=== PATIENT | female | born 1935 | race Caucasian/White ===

== ENCOUNTER 2017-12-01 13:02 | Observation (INO) ==
[2017-12-01] MEDS ORDERED: Aspirin 81 MG TAB.CHEW PO ONE (13:09)
--- NOTE | 2017-12-01 13:16 | Emergency Department Note ---
Disposition Clinical Impression: Chest pain Qualifiers: Chest pain type: unspecified Qualified Code(s): R07.9 - Chest pain, unspecified Disposition: Admitted As Inpatient Condition: Fair Referrals: Meredith Rivas MD [Primary Care Provider] - Forms: ED Satisfaction Letter Time of Disposition: 15:20 Chest Pain HPI - General Chief Complaint: ED Chest Pain Stated Complaint: Abnormal EKG Time Seen by Provider: 12/01/17 13:08 Source: patient Mode of arrival: ambulatory Limitations: no limitations Vital Signs Reviewed: Yes Nursing Notes Reviewed: Yes - History of Present Illness HPI Narrative: 82-year-old female who was sent in from the primary care provider's office due to chest pain. Patient states she has been having chest pain off and on for the last several days. She has no history of heart disease. He did have an EKG at her PCPs office with no acute change on that. Patient has had no recent cardiac workup. Pt complaint: chest pain Onset (ago): day(s) Duration: intermittent Onset: during rest Pain Location: substernal, left chest Severity: now resolved Severity scale (1-10): 0 Quality: tightness, aching Pain Radiation: none Improves with: nothing Worsens with: nothing Associated symptoms: Reports: other (Peripheral edema) Treatments prior to arrival chest pain: none - Related Data Home Medications Medication Instructions Recorded Confirmed Ascorbic Acid [Vitamin C] 1,000 mg PO DAILY 12/01/17 12/01/17 Aspirin [Lo-Dose Aspirin EC] 81 mg PO DAILY 12/01/17 12/01/17 Cholecalciferol (D-3) [Vitamin D] 2,000 unit PO DAILY 12/01/17 12/01/17 Dicyclomine [Bentyl] 20 mg PO QID 12/01/17 12/01/17 Fluticasone Propionate [Allergy 2 spr NS DAILY 12/01/17 12/01/17 Relief] Folic Acid 0.4 mg PO DAILY 12/01/17 12/01/17 Furosemide [Lasix] 40 mg PO DAILY 12/01/17 12/01/17 Lactobacillus [Culturelle] 1 each PO DAILY 12/01/17 12/01/17 Levothyroxine [Synthroid] 88 mcg PO DAILY 12/01/17 12/01/17 Omeprazole [PriLOSEC] 40 mg PO DAILY 12/01/17 12/01/17 Potassium Chloride [K-Tab ER] 20 meq PO DAILY 12/01/17 12/01/17 Ranitidine HCl [Acid Picking Crew Supervisor] 150 mg PO BID 12/01/17 12/01/17 Temazepam [Restoril] 30 mg PO HS 12/01/17 12/01/17 Vitamin E (Dl,Tocopheryl Acet) 400 unit PO DAILY 12/01/17 12/01/17 [Vitamin E] Allergies Allergy/AdvReac Type Severity Reaction Status Date / Time Penicillins Allergy Nausea Verified 04/04/15 18:45 Sulfa (Sulfonamide Allergy Itching Verified 04/04/15 18:45 Antibiotics) Constitutional: Denies: fever, chills, weakness, weight change Eyes: Denies: eye pain, eye discharge, vision change ENT ED: Denies: ear pain, throat pain, dental pain, hearing loss, epistaxis, congestion, dysphagia Cardiovascular: Reports: chest pain, edema. Denies: palpitations, dyspnea on exertion, syncope Respiratory: Denies: cough, dyspnea, wheezes, hemoptysis, stridor Gastrointestinal: Denies: abdominal pain, nausea, vomiting, diarrhea, constipation, hematemesis, melena, hematochezia Genitourinary: Denies: dysuria, frequency, hematuria, discharge Musculoskeletal: Denies: back pain, neck pain, arthralgia, myalgia Integumentary: Denies: rash, abrasion, lesions Neurological: Denies: headache, weakness, numbness, paresthesias, confusion, abnormal gait, vertigo Psychiatric: Denies: anxiety, depression, suicidal thoughts, homicidal thoughts , auditory hallucinations, visual hallucinations Endocrine: Denies: fatigue Hematological/Lymphatic: Denies: easy bleeding, easy bruising Allergic/Immunologic: Denies: facial swelling, urticaria Chest Pain PMH - Past Medical History Medical history: Reports: arthritis, cancer, CHF, GERD, hyperlipidemia, renal disease, other Surgical history: Reports: cancer surgery, cholecystectomy, hysterectomy, knee replacement, other Psychiatric history: Reports: no psych history MANAGER PROPERTY history: Reports: no MANAGER PROPERTY history - Social History Smoking Status: Unknown if ever smoked Alcohol use: Reports: none Drug use: Reports: none Physical Exam - General Limitations: no limitations General appearance: alert, in no apparent distress - Head Head exam: atraumatic, normocephalic, normal inspection - Eye Eye exam: Present: normal appearance, PERRL, EOMI - ENT ENT exam: normal exam, normal oropharynx, mucous membranes moist - Neck Neck exam: Present: normal inspection, full ROM, trachea midline - Chest Chest inspection: Present: normal inspection, symmetric chest wall rise - Respiratory Respiratory exam: Present: normal lung sounds bilaterally - Cardiovascular Cardiovascular exam: Present: regular rate, normal rhythm, normal heart sounds - Abdominal Exam Abdominal exam: Present: soft, Non-Tender. Absent: tenderness, distention, guarding, rebound, rigidity - Extremities Exam Extremities exam: Present: pedal edema - Expanded Lower Extremity Exam Neurovascular/Tendon exam: Absent: motor deficit, sensory deficit, tendon deficit Gait: observed and normal - Back Exam Back exam: Present: normal inspection, full ROM. Absent: tenderness - Neurological Exam Neurological exam: Present: alert, oriented X3 Course - Reevaluation(s) Reevaluation #1: 82-year-old with intermittent chest pain seen by family doctor or noted change on her EKG. Initial EKG here no acute changes, initial troponin is negative, chest x-ray no acute findings. Time: 16:08 - Consultations Consultation #1: Discussed with , admit. Time: 16:07 Vital Signs Temperature 98.0 F 12/01/17 13:03 Pulse Rate 77 12/01/17 13:03 Respiratory Rate 16 12/01/17 13:03 Blood Pressure 174/64 12/01/17 13:03 O2 Sat by Pulse Oximetry 98 12/01/17 13:03 Temperature 98.0 F 12/01/17 13:03 Pulse Rate 77 12/01/17 13:03 Respiratory Rate 16 12/01/17 13:03 Blood Pressure 174/64 12/01/17 13:03 O2 Sat by Pulse Oximetry 98 12/01/17 13:03 Oxygen Delivery Oxygen Delivery Room Air Chest Pain - Lab Data Lab results reviewed: Yes I reviewed the patient's lab results. Result diagrams: 12/01/17 13:19 12/01/17 13:19 Lab Results 12/01/17 12/01/17 12/01/17 Range/Units 13:09 13:16 13:19 WBC 5.7 (4.3-11.1) K/mcL RBC 4.25 (3.82-4.97) M/mcL Hgb 13.1 (11.5-15.4) g/dL Hct 39.5 (35.3-44.9) % MCV 92.9 (83.0-100.0) fL MCH 30.8 (28.0-33.3) pg MCHC 33.2 (31.6-35.5) g/dL RDW 14.2 (11.5-14.5) % Plt Count 256 (140-400) K/mcL MPV 9.4 (9.4-12.4) fL Immature Gran % 0.2 (0-4) % Seg Neutrophils % 66.6 % Lymphocytes % 25.7 % Monocytes % 5.8 % Eosinophils % 1.2 % Basophils % 0.5 % Neutrophils # 3.8 (1.6-8.9) K/mcL Lymphocytes # 1.5 (0.6-4.6) K/mcL Monocytes # 0.3 (0.0-1.3) K/mcL Eosinophils # 0.1 (0.0-0.6) K/mcL Basophils # 0.0 (0.0-0.2) K/mcL PT 9.3 L (9.4-12.1) Seconds INR 0.9 APTT 29.7 (26.0-36.0) Seconds Sodium (136-145) mEq/L Potassium (3.5-5.1) mEq/L Chloride (98-107) mEq/L Carbon Dioxide (23-29) mEq/L BUN (8-23) mg/dL Creatinine (0.60-1.20) mg/dL Est GFR ( Amer) (> 60) Est GFR (Non-Af Amer) (> 60) BUN/Creatinine Ratio (6-26) Glucose (70-105) mg/dL Calculated Osmolality (280-300) Calcium (8.6-10.3) mg/dL Troponin I (< 0.04) ng/mL B-Natriuretic Peptide 138 H (Less than 100) pg/mL 12/01/17 Range/Units 13:19 WBC (4.3-11.1) K/mcL RBC (3.82-4.97) M/mcL Hgb (11.5-15.4) g/dL Hct (35.3-44.9) % MCV (83.0-100.0) fL MCH (28.0-33.3) pg MCHC (31.6-35.5) g/dL RDW (11.5-14.5) % Plt Count (140-400) K/mcL MPV (9.4-12.4) fL Immature Gran % (0-4) % Seg Neutrophils % % Lymphocytes % % Monocytes % % Eosinophils % % Basophils % % Neutrophils # (1.6-8.9) K/mcL Lymphocytes # (0.6-4.6) K/mcL Monocytes # (0.0-1.3) K/mcL Eosinophils # (0.0-0.6) K/mcL Basophils # (0.0-0.2) K/mcL PT (9.4-12.1) Seconds INR APTT (26.0-36.0) Seconds Sodium 137 (136-145) mEq/L Potassium 4.2 (3.5-5.1) mEq/L Chloride 104 (98-107) mEq/L Carbon Dioxide 26 (23-29) mEq/L BUN 17 (8-23) mg/dL Creatinine 1.15 (0.60-1.20) mg/dL Est GFR ( Amer) 54 L (> 60) Est GFR (Non-Af Amer) 45 L (> 60) BUN/Creatinine Ratio 15 (6-26) Glucose 101 (70-105) mg/dL Calculated Osmolality 286 (280-300) Calcium 10.5 H (8.6-10.3) mg/dL Troponin I < 0.03 (< 0.04) ng/mL B-Natriuretic Peptide (Less than 100) pg/mL - Radiology Data Radiology results reviewed: Yes I reviewed the patient's radiology results. Chest X-Ray 12/01/17 13:09 IMPRESSION: No acute cardiopulmonary disease D/ / Daniel Dudley MD / Daniel Dudley MD Interpreting Provider: Daniel Dudley MD - EKG Data EKG attestation: Yes I reviewed and interpreted this EKG. EKG shows normal: sinus rhythm Rate: normal Rhythm: NSR [place]/QRS: left axis deviation Heart block present: 1st Degree Interpretation: no acute changes Heart Score - Score History: Moderately Suspicious EKG: Normal Age: Greater than 65 Risk Factors: 1-2 risk factors Troponin: Less than normal limit HEART Score Total: 4
[2017-12-01 14:17] LABS: Basophils % 0.5 %; Eosinophils # 0.1 K/mcL (0.0-0.6); Eosinophils % 1.2 %; Hematocrit 39.5 % (35.3-44.9); Hemoglobin 13.1 g/dL (11.5-15.4); Immature Granulocytes % 0.2 % (0-4); Lymphocytes # 1.5 K/mcL (0.6-4.6); Lymphocytes % 25.7 %; Mean Corpuscular HGB Conc 33.2 g/dL (31.6-35.5); Mean Corpuscular Hemoglobin 30.8 pg (28.0-33.3); Mean Corpuscular Volume 92.9 fL (83.0-100.0); Mean Platelet Volume 9.4 fL (9.4-12.4); Monocytes # 0.3 K/mcL (0.0-1.3); Monocytes % 5.8 %; Neutrophils # 3.8 K/mcL (1.6-8.9); Platelet Count 256 K/mcL (140-400); Red Blood Count 4.25 M/mcL (3.82-4.97); Red Cell Distribution Width 14.2 % (11.5-14.5); Segmented Neutrophils % 66.6 %
[2017-12-01 14:25] LABS: INR 0.9; Prothrombin Time 9.3 Seconds (9.4-12.1)
[2017-12-01 14:29] LABS: Activated Partial Thrombo Time 29.7 Seconds (26.0-36.0)
[2017-12-01 14:42] LABS: BUN/Creatinine Ratio 15 (6-26); Blood Urea Nitrogen 17 mg/dL (8-23); Calcium 10.5 mg/dL (8.6-10.3); Carbon Dioxide 26 mEq/L (23-29); Chloride 104 mEq/L (98-107); Glucose 101 mg/dL (70-105); Osmolality,Calculated 286 (280-300); Potassium 4.2 mEq/L (3.5-5.1); Sodium 137 mEq/L (136-145); Troponin I < 0.03 ng/mL (< 0.04); eGFR For African Americans 54 (> 60); eGFR For Non-African Americans 45 (> 60)
[2017-12-01] MEDS ORDERED: *HR* HYDROcodone/Acet 5/325 mg TABLET PO PRN (17:12)
[2017-12-01] MEDS ORDERED: Naloxone 0.4 MG/ML INJ IVP PRN (17:12)
[2017-12-01] MEDS ORDERED: *HR* Promethazine 25 MG/ML VIAL IVP PRN (17:12)
[2017-12-01] MEDS ORDERED: Ondansetron 4 MG/2 ML VIAL IVP PRN (17:12)
--- NOTE | 2017-12-01 18:21 | Electrocardiograph Report ---
[facility] Test Date: 2017-12-01 Pat Name: Nat Coppola Department: 103 Room: 3B48 Gender: F Burr Filer: JARAD : 1935 Requested By: Janusz Prado Order Number: [id number] Reading MD: Jose Lambert Measurements Intervals [place] Rate: 69 P: 27 AR: 226 QRS: -39 QRSD: 102 T: 26 QT: 367 QTc: 386 Interpretive Statements SINUS RHYTHM WITH FIRST DEGREE AV BLOCK MARKED LEFT AXIS DEVIATION [QRS AXIS < -30] VOLTAGE CRITERIA FOR LVH [MEETS CRITERIA IN ONE OF: R(aVL), S(V1), R(V5), R(V5/V6) +S(V1)] Electronically Signed On 12-01-2017 18:20:11 EDT by Jose Lambert
--- NOTE | 2017-12-01 18:49 | Internal Med History&Physical ---
Date of Encounter: 12/01/17 Time of Encounter: 17:45 Internal Medicine - H&P: HPI Chief complaint: Chest pain Admitted From: Emergency Dept Plans for Post Hospital Care: Home History of present illness: Ms. Coppola is a 82 year old female with a known past medical history of hypertension, congestive heart failure, GERD, and hypothyroidism who was sent to the emergency room from the primary care doctor's office due to chest pain. Patient stated that she went to see her PCP as a routine appointment, when she was there she happened to have chest pain located at left chest wall region and non-radiating. She did mention from last few days patient has been having intermittent chest pain lasts for 30 to 40 minutes. Every time when she gets chest pain she is feeling some fluttering / palpitations in her chest. She denied of an active chest pain now. Past Med Surg Social Fam HX - Past Medical History Medical history: arthritis, cancer, CHF, GERD, hyperlipidemia, renal disease, other Additional medical history: KIDNEY PROBLEMS/. Psychiatric history: no psych history - Past Surgical History Surgical History: cancer surgery, cholecystectomy, hysterectomy, knee replacement, other Additional surgical history: MVP congenital - Social History Smoking Status: Unknown if ever smoked Smokeless Tobacco Status: No Alcohol use: none Drug use: none - Family History Mother Living Status: Father Living Status: Internal Medicine - H&P: Meds Ascorbic Acid [Vitamin C] 1,000 mg PO DAILY 12/01/17 [History] Aspirin [Lo-Dose Aspirin EC] 81 mg PO DAILY 12/01/17 [History] Cholecalciferol (D-3) [Vitamin D] 2,000 unit PO DAILY 12/01/17 [History] Dicyclomine [Bentyl] 20 mg PO QID 12/01/17 [History] Fluticasone Propionate [Allergy Relief] 2 spr NS DAILY 12/01/17 [History] Folic Acid 0.4 mg PO DAILY 12/01/17 [History] Furosemide [Lasix] 40 mg PO DAILY 12/01/17 [History] Lactobacillus [Culturelle] 1 each PO DAILY 12/01/17 [History] Levothyroxine [Synthroid] 88 mcg PO DAILY 12/01/17 [History] Omeprazole [PriLOSEC] 40 mg PO DAILY 12/01/17 [History] Potassium Chloride [K-Tab ER] 20 meq PO DAILY 12/01/17 [History] Ranitidine HCl [Acid Warhead Maintenance Specialist] 150 mg PO BID 12/01/17 [History] Temazepam [Restoril] 30 mg PO HS 12/01/17 [History] Vitamin E (Dl,Tocopheryl Acet) [Vitamin E] 400 unit PO DAILY 12/01/17 [History] 3 Allergy/AdvReac Type Severity Reaction Status Date / Time Penicillins Allergy Nausea Verified 04/04/15 18:45 Sulfa (Sulfonamide Allergy Itching Verified 04/04/15 18:45 Antibiotics) All Systems PM: A 10-system review of systems was performed and is negative for pertinent findings except as documented above in the HPI. Review of systems: All the systems are reviewed everything is benign except the systems and symptoms I mentioned in the history of present illness - Constitutional Vitals: Temp Pulse Resp BP Pulse Ox 98.9 F 96 16 156/108 96 12/01/17 18:39 12/01/17 18:39 12/01/17 18:39 12/01/17 18:39 12/01/17 18:39 General appearance: Present: A&O X 3, no acute distress, answers questions appropriately - Head Head exam: Present: atraumatic, normal inspection - Neck Neck exam general surgery: Present: supple - Respiratory Respiratory exam: Present: decreased breath sounds. Absent: rales, respiratory distress - Cardiovascular Cardiovascular exam: Present: RRR, +S1, +S2. Absent: tachycardia - GI/Abdominal GI/Abdominal exam: Present: normal bowel sounds, soft. Absent: rebound, rigid, tenderness - Extremities Exam Extremities exam: Absent: calf tenderness, pedal edema, tenderness - Back Exam Back exam: Absent: CVA tenderness (L), CVA tenderness (R) - Neurological Exam Neurological exam: Present: alert, oriented X3 - Psychiatric Psychiatric exam: Present: normal affect, normal mood - Skin Skin exam: Absent: rash Internal Med - H&P Results - Labs CBC & Chem 7: 12/01/17 13:19 12/01/17 13:19 - Assessment and plan (1) Chest pain Current Visit: Yes Status: Acute Assessment and plan: Will admit the pt into Tele for observation Will place pt on monitoring and evaluation advisor check serial troponin so far negative troponin EKG reviewed no acute ischemic changes noticed will start pt on ASA and Nitro PRN for pain Will check FLP in AM Will get stress test in AM since pt is high risk for ACS Qualifiers: Chest pain type: unspecified Qualified Code(s): R07.9 - Chest pain, unspecified (2) HTN (hypertension) Current Visit: Yes Status: Acute Assessment and plan: Resumed home medications Qualifiers: Hypertension type: essential hypertension Qualified Code(s): I10 - Essential (primary) hypertension (3) CKD (chronic kidney disease) stage 2, GFR 60-89 ml/min Current Visit: Yes Status: Acute Assessment and plan: Stable creatinine avoid nephrotoxic medication (4) Hyperlipidemia Current Visit: No Status: Acute Assessment and plan: On statins Qualifiers: Hyperlipidemia type: unspecified Qualified Code(s): E78.5 - Hyperlipidemia , unspecified - Time Spent With Patient Total time spent is greater than 50% in coordination of care (as documented) at patient's floor/unit and/or counseling patient:
[2017-12-01] MEDS ORDERED: Temazepam 15 MG CAPSULE PO SCH (21:00)
[2017-12-01] MEDS: Acetaminophen 325 MG TABLET PO PRN (22:39)
[2017-12-02 01:22] LABS: Basophils % 0.6 %; Eosinophils # 0.1 K/mcL (0.0-0.6); Eosinophils % 2.5 %; Hematocrit 30.7 % (35.3-44.9); Lymphocytes # 1.7 K/mcL (0.6-4.6); Lymphocytes % 35.2 %; Mean Corpuscular HGB Conc 33.9 g/dL (31.6-35.5); Mean Corpuscular Hemoglobin 31.3 pg (28.0-33.3); Mean Corpuscular Volume 92.5 fL (83.0-100.0); Mean Platelet Volume 9.6 fL (9.4-12.4); Monocytes # 0.4 K/mcL (0.0-1.3); Monocytes % 8.6 %; Neutrophils # 2.5 K/mcL (1.6-8.9); Nucleated Red Blood Cells 0.4 /100 WBC (0); Platelet Count 209 K/mcL (140-400); Red Blood Count 3.32 M/mcL (3.82-4.97); Red Cell Distribution Width 14.2 % (11.5-14.5); Segmented Neutrophils % 53.1 %
[2017-12-02 01:23] LABS: Hemoglobin 10.4 g/dL (11.5-15.4)
[2017-12-02 01:40] LABS: BUN/Creatinine Ratio 17 (6-26); Blood Urea Nitrogen 18 mg/dL (8-23); Calcium 9.6 mg/dL (8.6-10.3); Carbon Dioxide 26 mEq/L (23-29); Chloride 105 mEq/L (98-107); Chol/HDL Ratio 3.9 (0-4.9); Cholesterol 190 mg/dL (< 200); Glucose 111 mg/dL (70-105); HDL Cholesterol 49 mg/dL (40-59); LDL Cholesterol,Calculated 124 mg/dL (0-99); Osmolality,Calculated 283 (280-300); Potassium 3.9 mEq/L (3.5-5.1); Sodium 135 mEq/L (136-145); Triglycerides 86 mg/dL (< 150); eGFR For African Americans > 60 (> 60); eGFR For Non-African Americans 51 (> 60)
[2017-12-02] MEDS ORDERED: Regadenoson 0.4 MG/5 ML SYRINGE IVP ONE (06:41)
[2017-12-02] MEDS ORDERED: Aspirin Enteric Coated 81 MG Tablet PO SCH (09:00)
[2017-12-02] MEDS ORDERED: Fluticasone Propionate Nasal 50 MCG/SPRAY BOTTLE NS SCH (09:00)
[2017-12-02] MEDS ORDERED: Famotidine 20 MG TABLET PO SCH (09:00)
[2017-12-02] MEDS ORDERED: Ascorbic Acid 500 MG TABLET PO SCH (09:00)
[2017-12-02] MEDS ORDERED: Folic Acid 1 MG TABLET PO SCH (09:00)
[2017-12-02] MEDS ORDERED: Cholecalciferol (D-3) 1,000 UNIT TABLET PO SCH (09:00)
[2017-12-02] MEDS ORDERED: Lactobacillus 1 EACH CAP.SPRINK PO SCH (09:00)
[2017-12-02] MEDS: Acetaminophen 325 MG TABLET PO PRN (10:41)
--- NOTE | 2017-12-02 13:48 | Discharge Summary ---
- NOTES TO OUTPATIENT PROVIDER Notes to Outpatient Provider: Follow-up with echocardiogram which is pending at time of discharge. Patient also likely benefit from Holter monitor as she reported fluttering of her heart Orders not resulted at time of discharge: Pending orders 12/01/17 18:45 NM chinmay perf SPECT multi [NM] Routine 12/02/17 12:53 EV echocardiogram Routine Date of Encounter: 12/02/17 Time of Encounter: 13:45 - Discharge Diagnosis (1) Chest pain Priority: Primary Status: Acute Assessment and Plan: presented with chest pain and heart fluttering. Serial troponins negative. EKG with known first degree AV block. Stress test negative for acute ischemia or infarct. Chest pain resolved at time of discharge. Echocardiogram pending ( patient did not want to wait for results). Continue home ASA. Advised to return to ER if chest pain recurs. Qualifiers: Chest pain type: unspecified Qualified Code(s): R07.9 - Chest pain, unspecified (2) Hyperlipidemia Priority: Secondary Status: Acute Assessment and Plan: per hx. Cont home statin Qualifiers: Hyperlipidemia type: unspecified Qualified Code(s): E78.5 - Hyperlipidemia , unspecified (3) HTN (hypertension) Priority: Primary Status: Acute Assessment and Plan: per hx. BP controlled. Cont home BP medications Qualifiers: Hypertension type: essential hypertension Qualified Code(s): I10 - Essential (primary) hypertension (4) CKD (chronic kidney disease) stage 2, GFR 60-89 ml/min Priority: Primary Status: Acute Assessment and Plan: Function at baseline. Avoid nephrotoxic agents as possible. Follow-up with PCP. (5) Murmur Priority: Primary Status: Acute Assessment and Plan: heard on exam. Patient reported history of mitral valve prolapse. 10/2016 outpatient cardiology note reviewed and noted 03/2014 TTE with EF 60%, mild diastolic dysfunction, no mention of heart valves. TTE pending at time of discharge (patient did not want to wait for results). Need to follow-up with primary furniture restorer outpatient and/or PCP (6) Vasovagal syncope Priority: Primary Status: Acute Assessment and Plan: per hx. Chart review shows 2013 TTT 2013 positive for vasovagal syncope. Advised on adequate hydration and compression stockings. (7) Palpitations Priority: Primary Status: Acute Assessment and Plan: reported sensation of ""heart fluttering". EKG with known first degree AV block. No arrhythmia noted on telemetry. No tachycardia. 2013 Holter monitor showed frequent PACs and PVCs. Would like to add low-dose BB however heart rate intermittently in the 60s and with history of vasovagal syncope 1 to avoid further bradycardia. She would likely benefit from repeat Holter monitor. Hospital course: please assessment and plan for Hospital course Discharge discussed with: patient (Seen and examined at bedside. Patient is new to me, information obtained from chart review and patient report. Patient says she feels fine, back to baseline. No chest pain or shortness of breath says she intermittently feels a fluttering sensation in her heart. A murmur is noted on exam the patient tells me that she has mitral valve prolapse. She would like to discharge home today. She is agreeable to stay for echocardiogram does not want to wait for results. Advised to return to ER if chest pain, SOB or severe palpitations recur. Otherwise follow-up with outpatient primary furniture restorer and PCP. Patient verbalizes understanding.) - Time Spent with Patient Total time spent providing and/or coordinating discharge services: - Discharge Medications Home Medications: Ascorbic Acid [Vitamin C] 1,000 mg PO DAILY 12/01/17 [History] Aspirin [Lo-Dose Aspirin EC] 81 mg PO DAILY 12/01/17 [History] Cholecalciferol (D-3) [Vitamin D] 2,000 unit PO DAILY 12/01/17 [History] Dicyclomine [Bentyl] 20 mg PO QID 12/01/17 [History] Fluticasone Propionate [Allergy Relief] 2 spr NS DAILY 12/01/17 [History] Folic Acid 0.4 mg PO DAILY 12/01/17 [History] Furosemide [Lasix] 40 mg PO DAILY 12/01/17 [History] Lactobacillus [Culturelle] 1 each PO DAILY 12/01/17 [History] Levothyroxine [Synthroid] 88 mcg PO DAILY 12/01/17 [History] Omeprazole [PriLOSEC] 40 mg PO DAILY 12/01/17 [History] Potassium Chloride [K-Tab ER] 20 meq PO DAILY 12/01/17 [History] Ranitidine HCl [Acid Mash Processing Operator] 150 mg PO BID 12/01/17 [History] Temazepam [Restoril] 30 mg PO HS 12/01/17 [History] Vitamin E (Dl,Tocopheryl Acet) [Vitamin E] 400 unit PO DAILY 12/01/17 [History] Allergies/Adverse Reactions: 3 Allergy/AdvReac Type Severity Reaction Status Date / Time Penicillins Allergy Nausea Verified 04/04/15 18:45 Sulfa (Sulfonamide Allergy Itching Verified 04/04/15 18:45 Antibiotics) Date of admission: 12/01/17 16:33 Primary care physician: Meredith [facility] Discharging clinician: Lady Merida Anticipated date of discharge: 12/02/17 - Constitutional Vitals: Temp Pulse Resp BP Pulse Ox 97.7 F 67 16 181/85 97 12/02/17 13:00 12/02/17 13:00 12/02/17 13:00 12/02/17 13:00 12/02/17 13:00 General appearance: Present: A&O X 3, no acute distress, answers questions appropriately - Head Head exam: Present: atraumatic, normocephalic - Eye Eye exam: Present: PERRL, conjuntiva pink, sclera anicteric Pupils: Present: PERRL - Neck Neck exam general surgery: Present: supple, trachea midline. Absent: lymphadenopathy - Respiratory Respiratory exam: Present: CTAB. Absent: accessory muscle use, rales, rhonchi, wheezes - Cardiovascular Cardiovascular exam: Present: RRR, +S1, +S2, systolic murmur. Absent: diastolic murmur, gallop, rubs - GI/Abdominal GI/Abdominal exam: Present: normal bowel sounds, soft, no peritoneal signs. Absent: distended, tenderness - Extremities Exam Extremities exam: Present: warm, radial pulses palpable and symmetrical. Absent : calf tenderness, cyanotic, pedal edema - Neurological Exam Neurological exam: Present: CN II-XII intact, oriented X3, no focal deficits. Absent: pronater drift, facial droop, speech deficit - Skin Skin exam: Present: dry, intact - Patient Status Disposition: Home, Self-Care Condition: Good Functional capacity at discharge: independent ambulation Overall status at discharge: patient is back to baseline - Discharge Instructions Instructions: Chest Pain (DC), Heart Murmur (GEN), Holter Monitoring (DC), Syncope (DC), Palpitations (DC) Follow Up With: Meredith Rivas MD [Primary Care Provider] - (Unable to schedule follow- up appointment for you as it is the weekend. Please call on Monday to schedule a follow-up appointment as soon as possible. You would likely benefit from a repeat Holter monitor. Please ask your primary care doctor to follow up with echocardiogram results ) - Diet and Activity Activity: increase activity as tolerated Diet: advance to your usual diet
--- NOTE | 2017-12-02 15:59 | Event Note ---
Date of Encounter: 12/02/17 Time of Encounter: 15:58 RN spoke with echocardiogram department who reported that patient would not have echocardiogram until tomorrow 12/03/2017. Patient was updated and she did not want to stay to have echocardiogram done. Stated she would follow up outpatient with her PCP.
[2017-12-02 17:14] VITALS: BP 190/74
== END 2017-12-02 18:23 | disposition home or self-care (01) ==
LOC: 3BNU 13:02 → EMEROO 13:02 → 3BNU 18:16
PROVIDERS: ADMIT Family Medicine; ATTEND Family Medicine

== ENCOUNTER 2019-10-10 14:09 | Inpatient (IN) ==
[2019-10-10] MEDS ORDERED: *HR* FentaNYL (PF) 100 MCG/2 ML VIAL IVP ONE (15:34)
[2019-10-10 16:38] LABS: Basophils % 0.5 %; Eosinophils # 0.1 K/mcL (0.0-0.6); Eosinophils % 0.8 %; Hematocrit 40.1 % (35.3-44.9); Hemoglobin 12.7 g/dL (11.5-15.4); Immature Granulocytes % 0.4 % (0-4); Lymphocytes # 1.1 K/mcL (0.6-4.6); Lymphocytes % 13.4 %; Mean Corpuscular HGB Conc 31.7 g/dL (31.6-35.5); Mean Corpuscular Hemoglobin 29.9 pg (28.0-33.3); Mean Corpuscular Volume 94.4 fL (83.0-100.0); Monocytes # 0.4 K/mcL (0.0-1.3); Monocytes % 4.7 %; Neutrophils # 6.3 K/mcL (1.6-8.9); Platelet Count 191 K/mcL (140-400); Red Blood Count 4.25 M/mcL (3.82-4.97); Red Cell Distribution Width 14.5 % (11.5-14.5); Segmented Neutrophils % 80.2 %; White Blood Count 7.9 K/mcL (4.3-11.1)
[2019-10-10 16:56] LABS: Calcium 10.4 mg/dL (8.6-10.3)
[2019-10-10] MEDS ORDERED: Ondansetron 4 MG/2 ML VIAL IVP PRN (17:23)
[2019-10-10] MEDS ORDERED: Naloxone 0.4 MG/ML INJ IVP PRN (17:23)
[2019-10-10] MEDS ORDERED: Loratadine/Pseudophed (12 HR) 1 EACH TABLET PO PRN (17:28)
[2019-10-10] MEDS: *HR* OxyCODONE Immed Rel 5 MG TABLET PO PRN (18:33)
[2019-10-10] MEDS: *HR* HYDROcodone/Acet 5/325 mg TABLET PO PRN (21:33)
[2019-10-10] MEDS: *HR* Heparin 5,000 UNIT/ML VIAL SQ SCH (21:34)
[2019-10-10] MEDS ORDERED: Melatonin 3 MG TABLET PO ONE (22:50)
[2019-10-10] MEDS: Acetaminophen 325 MG TABLET PO PRN (23:16)
[2019-10-11] MEDS: *HR* OxyCODONE Immed Rel 5 MG TABLET PO PRN ×4 (02:34→21:18)
[2019-10-11] MEDS: *HR* HYDROcodone/Acet 5/325 mg TABLET PO PRN ×2 (06:02→12:05)
[2019-10-11] MEDS: *HR* Heparin 5,000 UNIT/ML VIAL SQ SCH ×3 (06:02→21:11)
[2019-10-11] MEDS: Aspirin Enteric Coated 81 MG Tablet PO SCH (08:28)
[2019-10-11] MEDS ORDERED: Loratadine 10 MG TABLET PO PRN (12:10)
[2019-10-11] MEDS ORDERED: Nitroglycerin 0.4 MG TAB.SUBL SL PRN (12:10)
[2019-10-11] MEDS ORDERED: Sennosides/Docusate Sodium TABLET PO PRN (12:41)
[2019-10-11] MEDS: Temazepam 15 MG CAPSULE PO SCH (21:13)
[2019-10-12] MEDS ORDERED: Melatonin 3 MG TABLET PO ONE (01:06)
[2019-10-12] MEDS: *HR* Heparin 5,000 UNIT/ML VIAL SQ SCH ×3 (05:10→20:59)
[2019-10-12 07:19] LABS: Basophils % 0.4 %; Eosinophils # 0.3 K/mcL (0.0-0.6); Eosinophils % 5.1 %; Hematocrit 34.5 % (35.3-44.9); Hemoglobin 10.8 g/dL (11.5-15.4); Immature Granulocytes % 0.2 % (0-4); Lymphocytes # 1.5 K/mcL (0.6-4.6); Lymphocytes % 27.5 %; Mean Corpuscular HGB Conc 31.3 g/dL (31.6-35.5); Mean Corpuscular Hemoglobin 29.6 pg (28.0-33.3); Mean Corpuscular Volume 94.5 fL (83.0-100.0); Mean Platelet Volume 10.2 fL (9.4-12.4); Monocytes # 0.5 K/mcL (0.0-1.3); Monocytes % 9.4 %; Platelet Count 192 K/mcL (140-400); Red Blood Count 3.65 M/mcL (3.82-4.97); Red Cell Distribution Width 14.5 % (11.5-14.5); Segmented Neutrophils % 57.4 %; White Blood Count 5.3 K/mcL (4.3-11.1)
[2019-10-12 07:46] LABS: BUN/Creatinine Ratio 20 (6-26); Blood Urea Nitrogen 19 mg/dL (8-23); Calcium 9.9 mg/dL (8.6-10.3); Carbon Dioxide 26 mEq/L (23-29); Chloride 102 mEq/L (98-107); Glucose 102 mg/dL (70-105); Magnesium 2.1 mg/dL (1.6-2.6); Osmolality,Calculated 282 (280-300); Potassium 3.8 mEq/L (3.5-5.1); Sodium 135 mEq/L (136-145); eGFR For African Americans > 60 (> 60); eGFR For Non-African Americans 56 (> 60)
[2019-10-12 07:54] LABS: Thyroid Stimulating Hormone 2.473 mcIU/mL (0.340-5.600)
[2019-10-12] MEDS: Furosemide 40 MG TABLET PO SCH (09:06)
[2019-10-12] MEDS: Multivit/Ca/Min/Fe/FA 1 TAB TABLET PO SCH (09:06)
[2019-10-12] MEDS: Aspirin Enteric Coated 81 MG Tablet PO SCH (09:06)
[2019-10-12] MEDS: Lactobacillus 1 EACH CAP.SPRINK PO SCH (09:06)
[2019-10-12] MEDS: Metoprolol XL (24 HR) Succ 25 MG TAB.ER.24H PO SCH (09:06)
[2019-10-12] MEDS: *HR* OxyCODONE Immed Rel 5 MG TABLET PO PRN ×3 (09:07→17:33)
[2019-10-12] MEDS: polyethylene glycoL 3350 17 GM POWD.PACK PO SCH (09:23)
[2019-10-12] MEDS: Acetaminophen 325 MG TABLET PO PRN (10:45)
[2019-10-12] MEDS: Temazepam 15 MG CAPSULE PO SCH (20:58)
[2019-10-13] MEDS: *HR* Heparin 5,000 UNIT/ML VIAL SQ SCH ×3 (05:03→20:07)
[2019-10-13 07:40] LABS: Basophils % 0.6 %; Eosinophils # 0.3 K/mcL (0.0-0.6); Eosinophils % 5.7 %; Hematocrit 38.5 % (35.3-44.9); Immature Granulocytes % 0.4 % (0-4); Lymphocytes # 1.9 K/mcL (0.6-4.6); Lymphocytes % 35.3 %; Mean Corpuscular HGB Conc 31.2 g/dL (31.6-35.5); Mean Corpuscular Hemoglobin 29.7 pg (28.0-33.3); Mean Corpuscular Volume 95.3 fL (83.0-100.0); Mean Platelet Volume 9.6 fL (9.4-12.4); Monocytes # 0.5 K/mcL (0.0-1.3); Monocytes % 9.2 %; Neutrophils # 2.6 K/mcL (1.6-8.9); Platelet Count 186 K/mcL (140-400); Red Blood Count 4.04 M/mcL (3.82-4.97); Red Cell Distribution Width 14.2 % (11.5-14.5); Segmented Neutrophils % 48.8 %; White Blood Count 5.4 K/mcL (4.3-11.1)
[2019-10-13 07:59] LABS: BUN/Creatinine Ratio 18 (6-26); Blood Urea Nitrogen 17 mg/dL (8-23); Calcium 10.5 mg/dL (8.6-10.3); Carbon Dioxide 31 mEq/L (23-29); Chloride 102 mEq/L (98-107); Glucose 89 mg/dL (70-105); Magnesium 2.1 mg/dL (1.6-2.6); Osmolality,Calculated 287 (280-300); Potassium 3.7 mEq/L (3.5-5.1); Sodium 138 mEq/L (136-145); eGFR For African Americans > 60 (> 60); eGFR For Non-African Americans 56 (> 60)
[2019-10-13 08:01] LABS: % Iron Saturation 15 % (15-50); Iron 53 mcg/dL (50-170); Transferrin 246 mg/dL (203-362)
[2019-10-13 08:19] LABS: Ferritin 95 ng/mL (10-120)
[2019-10-13 08:28] LABS: Folate > 22.3 ng/mL (3.0-16.0); Vitamin B12 373 pg/mL (250-1100)
[2019-10-13] MEDS: polyethylene glycoL 3350 17 GM POWD.PACK PO SCH (10:37)
[2019-10-13] MEDS: Aspirin Enteric Coated 81 MG Tablet PO SCH (10:37)
[2019-10-13] MEDS: Metoprolol XL (24 HR) Succ 25 MG TAB.ER.24H PO SCH (10:37)
[2019-10-13] MEDS: Multivit/Ca/Min/Fe/FA 1 TAB TABLET PO SCH (10:38)
[2019-10-13] MEDS: *HR* OxyCODONE Immed Rel 5 MG TABLET PO PRN ×4 (10:38→20:12)
[2019-10-13] MEDS: Furosemide 40 MG TABLET PO SCH (10:38)
[2019-10-13] MEDS: Lactobacillus 1 EACH CAP.SPRINK PO SCH (10:39)
[2019-10-13] MEDS: Temazepam 15 MG CAPSULE PO SCH (20:07)
[2019-10-14] MEDS ORDERED: Melatonin 3 MG TABLET PO PRN (01:12)
[2019-10-14] MEDS: *HR* OxyCODONE Immed Rel 5 MG TABLET PO PRN (01:21)
[2019-10-14 02:22] LABS: Basophils % 0.6 %; Eosinophils # 0.3 K/mcL (0.0-0.6); Eosinophils % 5.5 %; Immature Granulocytes % 0.4 % (0-4); Lymphocytes # 1.7 K/mcL (0.6-4.6); Lymphocytes % 33.3 %; Mean Corpuscular HGB Conc 31.4 g/dL (31.6-35.5); Mean Corpuscular Hemoglobin 29.9 pg (28.0-33.3); Mean Corpuscular Volume 95.1 fL (83.0-100.0); Mean Platelet Volume 9.8 fL (9.4-12.4); Monocytes # 0.5 K/mcL (0.0-1.3); Neutrophils # 2.6 K/mcL (1.6-8.9); Platelet Count 179 K/mcL (140-400); Red Blood Count 3.68 M/mcL (3.82-4.97); Red Cell Distribution Width 14.4 % (11.5-14.5); Segmented Neutrophils % 50.2 %; White Blood Count 5.1 K/mcL (4.3-11.1)
[2019-10-14 02:41] LABS: Albumin 3.5 g/dL (3.5-5.7); Albumin/Globulin Ratio 1.3 (1.1-2.2); Bilirubin,Direct 0.1 mg/dL (0.0-0.2); Bilirubin,Indirect 0.3 mg/dL (0.0-1.0); Bilirubin,Total 0.4 mg/dL (0.3-1.0); Globulin 2.7 g/dL (2.4-3.5); Total Protein 6.2 g/dL (6.4-8.9)
[2019-10-14 02:45] LABS: BUN/Creatinine Ratio 18 (6-26); Blood Urea Nitrogen 17 mg/dL (8-23); Calcium 10.1 mg/dL (8.6-10.3); Carbon Dioxide 29 mEq/L (23-29); Chloride 100 mEq/L (98-107); Glucose 90 mg/dL (70-105); Osmolality,Calculated 283 (280-300); Potassium 4.3 mEq/L (3.5-5.1); Sodium 136 mEq/L (136-145); eGFR For African Americans > 60 (> 60); eGFR For Non-African Americans 55 (> 60)
[2019-10-14] MEDS: *HR* Heparin 5,000 UNIT/ML VIAL SQ SCH (05:01)
[2019-10-14] MEDS: Lactobacillus 1 EACH CAP.SPRINK PO SCH (08:59)
[2019-10-14] MEDS: Metoprolol XL (24 HR) Succ 25 MG TAB.ER.24H PO SCH (08:59)
[2019-10-14] MEDS: Furosemide 40 MG TABLET PO SCH (08:59)
[2019-10-14] MEDS: Multivit/Ca/Min/Fe/FA 1 TAB TABLET PO SCH (08:59)
[2019-10-14] MEDS: polyethylene glycoL 3350 17 GM POWD.PACK PO SCH (08:59)
[2019-10-14] MEDS: Aspirin Enteric Coated 81 MG Tablet PO SCH (09:00)
[2019-10-14 10:00] VITALS: BP 121/70
== END 2019-10-14 11:45 | disposition home health service (06) | DRG 185 ==
LOC: 3ANU 14:09 → EMEROOARM 14:09 → SUATTDRO 16:27 → 3ANU 17:53
PROVIDERS: ADMIT Student in an Organized Health Care Education/Training Program; ATTEND Pharmacist

== ENCOUNTER 2020-09-29 12:15 | Inpatient (IN) ==
[2020-09-29 13:40] LABS: Basophils % 0.5 %; Eosinophils # 0.1 K/mcL (0.0-0.6); Eosinophils % 1.1 %; Hematocrit 37.2 % (35.3-44.9); Hemoglobin 11.9 g/dL (11.5-15.4); Immature Granulocytes % 0.2 % (0-4); Lymphocytes # 1.1 K/mcL (0.6-4.6); Lymphocytes % 19.1 %; Mean Corpuscular Hemoglobin 30.3 pg (28.0-33.3); Mean Corpuscular Volume 94.7 fL (83.0-100.0); Mean Platelet Volume 9.1 fL (9.4-12.4); Monocytes # 0.3 K/mcL (0.0-1.3); Neutrophils # 4.1 K/mcL (1.6-8.9); Platelet Count 193 K/mcL (140-400); Red Blood Count 3.93 M/mcL (3.82-4.97); Red Cell Distribution Width 14.5 % (11.5-14.5); Segmented Neutrophils % 73.1 %; White Blood Count 5.7 K/mcL (4.3-11.1)
[2020-09-29 13:51] LABS: INR 0.9; Prothrombin Time 10.6 Seconds (9.4-12.1)
[2020-09-29 14:00] LABS: Alanine Aminotransferase 11 Units/L (7-52); Albumin 3.8 g/dL (3.5-5.7); Albumin/Globulin Ratio 1.4 (1.1-2.2); Alkaline Phosphatase 84 Units/L (34-104); Aspartate Amino Transferase 16 Units/L (13-39); BUN/Creatinine Ratio 15 (6-26); Bilirubin,Total 0.4 mg/dL (0.3-1.0); Blood Urea Nitrogen 16 mg/dL (8-23); Calcium 9.5 mg/dL (8.6-10.3); Carbon Dioxide 29 mEq/L (23-29); Chloride 103 mEq/L (98-107); Globulin 2.8 g/dL (2.4-3.5); Glucose 112 mg/dL (70-105); Osmolality,Calculated 290 (280-300); Potassium 3.5 mEq/L (3.5-5.1); Sodium 139 mEq/L (136-145); Total Protein 6.6 g/dL (6.4-8.9); eGFR For African Americans 58 (> 60); eGFR For Non-African Americans 48 (> 60)
[2020-09-29 14:02] LABS: Troponin I < 0.03 ng/mL (< 0.04)
[2020-09-29] MEDS ORDERED: Naloxone 0.4 MG/ML INJ IVP PRN (16:08)
[2020-09-29] MEDS ORDERED: Perflutren Lipid Microsphere 1.3 ML in 0.9 % Sodium Chloride 8.7 ML IVP PRN (16:09)
[2020-09-29] MEDS ORDERED: 0.9 % Sodium Chloride 1,000 ML IVC SCH (17:00)
[2020-09-29] MEDS: Temazepam 15 MG CAPSULE PO SCH (22:04)
[2020-09-30 01:36] LABS: Hematocrit 33.8 % (35.3-44.9); Hemoglobin 11.1 g/dL (11.5-15.4); Mean Corpuscular HGB Conc 32.8 g/dL (31.6-35.5); Mean Corpuscular Hemoglobin 30.7 pg (28.0-33.3); Mean Corpuscular Volume 93.6 fL (83.0-100.0); Mean Platelet Volume 9.4 fL (9.4-12.4); Platelet Count 181 K/mcL (140-400); Red Blood Count 3.61 M/mcL (3.82-4.97); Red Cell Distribution Width 14.2 % (11.5-14.5); White Blood Count 5.1 K/mcL (4.3-11.1)
[2020-09-30 01:56] LABS: Blood Urea Nitrogen 12 mg/dL (8-23); Calcium 9.2 mg/dL (8.6-10.3); Carbon Dioxide 29 mEq/L (23-29); Chloride 106 mEq/L (98-107); Chol/HDL Ratio 3.7 (0-4.9); Cholesterol 176 mg/dL (< 200); Glucose 94 mg/dL (70-105); HDL Cholesterol 47 mg/dL (40-59); LDL Cholesterol,Calculated 108 mg/dL (< 100); Osmolality,Calculated 290 (280-300); Potassium 3.2 mEq/L (3.5-5.1); Sodium 140 mEq/L (136-145); Triglycerides 106 mg/dL (< 150)
[2020-09-30 02:30] LABS: BUN/Creatinine Ratio 14 (6-26); eGFR For African Americans > 60 (> 60); eGFR For Non-African Americans > 60 (> 60)
[2020-09-30] MEDS: Aspirin 81 MG TAB.CHEW PO SCH (07:55)
[2020-09-30 09:21] LABS: Estimated Average Glucose 105 mg/dl; Hemoglobin A1C 5.3 %
[2020-09-30] MEDS: Temazepam 15 MG CAPSULE PO SCH (21:47)
[2020-09-30] MEDS: Acetaminophen 325 MG TABLET PO PRN (21:52)
[2020-10-01 05:58] LABS: Hemoglobin 11.2 g/dL (11.5-15.4); Mean Corpuscular Hemoglobin 30.5 pg (28.0-33.3); Mean Corpuscular Volume 95.4 fL (83.0-100.0); Mean Platelet Volume 9.5 fL (9.4-12.4); Platelet Count 178 K/mcL (140-400); Red Blood Count 3.67 M/mcL (3.82-4.97); Red Cell Distribution Width 14.3 % (11.5-14.5); White Blood Count 5.1 K/mcL (4.3-11.1)
[2020-10-01 06:32] LABS: Alanine Aminotransferase 9 Units/L (7-52); Albumin 3.3 g/dL (3.5-5.7); Albumin/Globulin Ratio 1.4 (1.1-2.2); Alkaline Phosphatase 70 Units/L (34-104); Aspartate Amino Transferase 15 Units/L (13-39); BUN/Creatinine Ratio 18 (6-26); Bilirubin,Total 0.4 mg/dL (0.3-1.0); Blood Urea Nitrogen 17 mg/dL (8-23); Calcium 9.7 mg/dL (8.6-10.3); Carbon Dioxide 28 mEq/L (23-29); Chloride 108 mEq/L (98-107); Globulin 2.3 g/dL (2.4-3.5); Glucose 90 mg/dL (70-105); Osmolality,Calculated 289 (280-300); Potassium 4.3 mEq/L (3.5-5.1); Sodium 139 mEq/L (136-145); Total Protein 5.6 g/dL (6.4-8.9); eGFR For African Americans > 60 (> 60); eGFR For Non-African Americans 58 (> 60)
[2020-10-01] MEDS: Aspirin 81 MG TAB.CHEW PO SCH (08:09)
[2020-10-01] MEDS: Acetaminophen 325 MG TABLET PO PRN (08:18)
[2020-10-01] MEDS ORDERED: Metoprolol XL (24 HR) Succ 25 MG TAB.ER.24H PO SCH (09:00)
[2020-10-01] MEDS ORDERED: amLODIPine 5 MG TABLET PO SCH (09:45)
[2020-10-01 11:21] VITALS: BP 159/78
== END 2020-10-01 13:44 | disposition home or self-care (01) | DRG 149 ==
LOC: 3BNU 12:15 → EMEROOARM 12:15 → SUATTDRO 14:52 → 3BNU 15:49
PROVIDERS: ADMIT General Practice; ATTEND Registered Nurse